=== PATIENT | female | born 1955 | race Caucasian/White ===

== ENCOUNTER 2019-10-19 09:00 | Outpatient (CLI) | payer BC, MEDICAID ==
[~2019-10-19] VITALS: Ht 165.1 cm; Wt 80.7 kg
[~2019-10-19 09:00] MED LIST: ASPI-1265 PO; DULO20CA18 PO; ENAL10TA PO; FAMO-128 PO; GABA-532 PO; METO100T14 PO; TIOT4MIS5 IH; TRAM50TA2 PO
[2019-10-19] MEDS ORDERED: albuterol 2.5 MG/3 ML nebule NEB ONE (09:20)
== END 2019-10-19 23:59 | disposition home or self-care (01) ==
LOC: RT 09:00
PROVIDERS: ATTEND Internal Medicine Pulmonary Disease
DX: J44.9 Chronic obstructive pulmonary disease, unspecified (principal)
CPT/HCPCS: 94060; 94727; 94729; 94760